=== PATIENT | female | born 1945 | race Caucasian/White ===

== ENCOUNTER 2020-04-10 07:30 | Day surgery (SDC) | payer MEDICARE, BC ==
[2020-04-10] VITALS (27 sets, daily range): BP systolic 60–132; BP diastolic 41–93
[~2020-04-10] VITALS: Ht 162.6 cm; Wt 50.9 kg
[2020-04-10] MEDS ORDERED: LIDOcaine Viscous 15ml cup ONE (07:40)
[2020-04-10] MEDS ORDERED: MIDAZolam 5mg/5ml vial ONE (07:40)
[2020-04-10] MEDS ORDERED: fentaNYL/PF 50MCG/1 ML 2ML syringe ONE (07:40)
[2020-04-10] MEDS ORDERED: GABA-530 PO (07:47)
[2020-04-10] MEDS ORDERED: NABU-134 PO (07:47)
[2020-04-10] MEDS ORDERED: LISI-600 PO (07:48)
[2020-04-10] MEDS ORDERED: LEVO75TA PO (07:49)
[2020-04-10] MEDS ORDERED: TRIA1TAB5 PO (07:50)
[2020-04-10] MEDS ORDERED: SIMV20TA PO (07:52)
[2020-04-10] MEDS ORDERED: CYAN-51 PO (07:53)
[2020-04-10] MEDS ORDERED: CALCIUM PO (07:54)
[2020-04-10] MEDS ORDERED: ZINC50TA67 PO (07:54)
[2020-04-10 12:05] LABS: BASOPHILS % (AUTO) 0.6 % (0-1); EOSINOPHILS # (AUTO) 0.1 X10'3 (0-0.9); HEMATOCRIT 26.7 % (35.0-45.0); HEMOGLOBIN 8.7 g/dl (12.0-16.0); LYMPHOCYTES # (AUTO) 1.3 X10'3 (1.1-4.8); LYMPHOCYTES % (AUTO) 24.1 % (21-51); MEAN CORPUSCULAR HEMOGLOBIN 31.1 PG (27.0-31.0); MEAN CORPUSCULAR HGB CONC 32.4 g/dL (33.0-36.5); MEAN CORPUSCULAR VOLUME 96.1 FL (78-98); MEAN PLATELET VOLUME 7.9 FL (7.4-10.4); MONOCYTES # (AUTO) 0.5 X10'3 (0-0.9); MONOCYTES % (AUTO) 8.4 % (2-12); NEUTROPHILS # (AUTO) 3.6 X10'3 (1.8-7.7); NEUTROPHILS % (AUTO) 65.9 % (42-75); PLATELET COUNT 171 X10'3 (140-440); RED BLOOD COUNT 2.78 X10'6 (4.20-5.60); RED CELL DISTRIBUTION WIDTH 13.1 % (11.5-14.5); WHITE BLOOD COUNT 5.4 X10'3 (4.5-11.0)
[2020-04-10 12:29] LABS: ALANINE AMINOTRANSFERASE 12 U/L (12-78); ALBUMIN 2.5 G/DL (3.4-5.0); ALBUMIN/GLOBULIN RATIO 0.9 (1.1-1.5); ALKALINE PHOSPHATASE 44 IU/L (46-116); ANION GAP 11 (8-16); ASPARTATE AMINO TRANSFERASE 17 U/L (10-37); BILIRUBIN,TOTAL 0.3 MG/DL (0.1-1.0); BLOOD UREA NITROGEN 13 MG/DL (7-18); BUN/CREATININE RATIO 20.3 (6.6-38.0); CALCIUM 7.7 MG/DL (8.5-10.1); CHLORIDE 109 MMOL/L (99-107); CREATININE 0.64 MG/DL (0.40-0.90); GLUCOSE 58 MG/DL (70-104); POTASSIUM 3.7 MMOL/L (3.5-5.1); SODIUM 141 MMOL/L (135-145); TOTAL CARBON DIOXIDE 20.6 MMOL/L (24-32); TOTAL PROTEIN 5.3 G/DL (6.4-8.2); TROPONIN I < 0.04 NG/ML (0.0-0.05); eGFR > 90 ML/MIN
== END 2020-04-10 12:48 | disposition home or self-care (01) ==
LOC: GI LAB 07:30
PROVIDERS: ATTEND Internal Medicine Gastroenterology
DX: D50.9 Iron deficiency anemia, unspecified (principal); K63.5 Polyp of colon; K29.50 Unspecified chronic gastritis without bleeding; I10 Essential (primary) hypertension; Z79.899 Other long term (current) drug therapy; Z88.5 Allergy status to narcotic agent
CPT/HCPCS: 36415; 43239; 45385; 80053; 84484; 85025; 93005; 99153; C1773; G0500; J2250; J3010; J7040; 88305; 99152; A4620